=== PATIENT | female | born 1960 | race Caucasian/White ===

== ENCOUNTER 2018-04-23 11:37 | Outpatient (CLI) | payer OTHER ==
[2018-04-23 17:47] LABS: BASOPHILS # (AUTO) 0.1 10^3/uL (0.0-0.1); BASOPHILS % (AUTO) 0.9 %; EOSINOPHILS # (AUTO) 0.1 10^3/uL (0.0-0.7); HGB - HEMOGLOBIN 14.7 g/dL (12.0-16.0); LYMPHOCYTES # (AUTO) 2.1 10^3/uL (1.5-3.5); LYMPHOCYTES % (AUTO) 33.6 %; MEAN CORPUSCULAR HEMOGLOBIN 29.3 pg (27.0-31.0); MEAN CORPUSCULAR HGB CONC 32.6 g/dL (32.0-36.0); MEAN PLATELET VOLUME 8.4 fL (7.9-10.8); MONOCYTES # (AUTO) 0.4 10^3/uL (0.0-1.0); MONOCYTES % (AUTO) 6.3 %; NEUTROPHILS # (AUTO) 3.7 10^3/uL (1.5-6.6); NEUTROPHILS % (AUTO) 57.2 %; PLT - PLATELET COUNT 289 10^3/uL (130-450); RED BLOOD COUNT 5.01 10^6/uL (4.20-5.40); RED CELL DISTRIBUTION WIDTH 13.6 % (12.0-15.0); WHITE BLOOD COUNT 6.4 x10^3/uL (4.8-10.8)
[2018-04-23 18:02] LABS: ALBUMIN 4.1 g/dL (3.2-5.5); ALBUMIN/GLOBULIN RATIO 1.2 (1.0-2.2); ALKALINE PHOSPHATASE 84 IU/L (42-121); ALT ALANINE AMINOTRANSFERASE 31 IU/L (10-60); AST ASPARTATE AMINOTRANSFERASE 25 IU/L (10-42); BILIRUBIN,TOTAL 0.6 mg/dL (0.2-1.0); BUN - BLOOD UREA NITROGEN 17 mg/dL (6-20); CALCIUM 9.4 mg/dL (8.5-10.3); CARBON DIOXIDE - CO2 28 mmol/L (21-32); CHLORIDE 99 mmol/L (101-111); CHOL/HDL RATIO 10.2 (<4.4); CHOLESTEROL 459 mg/dL; CREATININE 0.8 mg/dL (0.4-1.0); GFR - MDRD 74 (>89); GLUCOSE 90 mg/dL (70-100); HDL CHOLESTEROL 45 mg/dL; SODIUM 137 mmol/L (135-145); TOTAL PROTEIN 7.6 g/dL (6.7-8.2)
[2018-04-23 19:43] LABS: LDL CHOLESTEROL,DIRECT 110 mg/dL; LDLD/HDL RATIO 2.4 (<4.4)
[2018-04-23 20:05] LABS: HB2 TOTAL 15.4 g/dL; HEMOGLOBIN A1C 0.55 g/dL; HEMOGLOBIN A1C % 5.4 % (4.6-6.2)
== END 2018-04-23 11:38 | disposition home or self-care (01) ==
LOC: LAB.F 11:37
PROVIDERS: ATTEND Registered Nurse
DX: I10 Essential (primary) hypertension (principal)
CPT/HCPCS: 36415; 80050; 80061; 83036; 83721

== ENCOUNTER 2018-05-01 09:39 | Outpatient (CLI) | payer OTHER ==
--- NOTE | 2018-05-03 10:04 | CT Report ---
Reason: TOBACCO DEPENDENCE,IN REMISSION Procedure Date: 05/01/2018 Accession Number: [id number] / [id number] Procedure: CT - Chest/Lung Screen Low Dose W/O CPT Code: FULL RESULT: EXAM CT LUNG SCREEN EXAM DATE: 05/01/2018 09:55 AM. HISTORY: 57-year-old patient with [id number] smoking history. Currently smoking: No. Years since quitting: Less than 1 year, smoking cessation in May 2017. COMPARISON: None. TECHNIQUE: CT examination of the entire thorax without contrast was performed using low-dose technique. Thin section coronal, axial, sagittal and MIP axial images were obtained. In accordance with CT protocol optimization, one or more of the following dose reduction techniques were utilized for this exam: automated exposure control, adjustment of mA and/or KV based on patient size, or use of iterative reconstructive technique. FINDINGS: Nodules: Right upper lobe: None. Right middle lobe: None. Right lower lobe: Perifissural 0.9 cm right lower lobe nodule image 54 series 6 and image 81 series 4. Left upper lobe: None. Left lower lobe: None. Emphysema: Mild to moderate. Pleura: Unremarkable. Aorta: Unremarkable. Mediastinum: Unremarkable. Coronary calcifications: None. Other pulmonary findings: None. Other extrapulmonary findings: None. IMPRESSION: Lung-RADS ASSESSMENT CATEGORY: 4A - suspicious. Probability of malignancy: 5-15%. RECOMMENDATION: Recommended 3 month low-dose CT followup or characterization by PET CT based on Lung-RADS guidelines. RADIA
== END 2018-05-01 09:40 | disposition home or self-care (01) ==
LOC: DI 09:39
PROVIDERS: ATTEND Registered Nurse
DX: Z12.2 Encounter for screening for malignant neoplasm of respiratory organs (principal); Z87.891 Personal history of nicotine dependence

== ENCOUNTER 2018-07-27 10:12 | Outpatient (CLI) | payer OTHER ==
--- NOTE | 2018-07-27 15:18 | CT Report ---
Reason: SOLITARY NODULE OF LUNG Procedure Date: 07/27/2018 Accession Number: [id number] / [id number] Procedure: CT - CHEST WO CPT Code: FULL RESULT: EXAM: CT CHEST EXAM DATE: 07/27/2018 10:25 AM. CLINICAL HISTORY: Solitary nodule of lung. COMPARISONS: CHEST SCREEN LOW DOSE W/O 05/01/2018 9:45 AM. TECHNIQUE: Routine helical CT imaging was performed through the chest. IV contrast: None. Reconstructions: Coronal and sagittal. In accordance with CT protocol optimization, one or more of the following dose reduction techniques were utilized for this exam: automated exposure control, adjustment of mA and/or KV based on patient size, or use of iterative reconstructive technique. FINDINGS: Lungs/Pleura: There has been no interval change in circumscribed perifissural 9 mm pulmonary nodule, reference 32/4. No bronchial thickening, consolidation, or edema. Pulmonary vasculature is normal. No pericardial or pleural effusion. No pneumothorax. Mediastinum: There is a 16 mm low-density nodule in the right thyroid lobe. No mediastinal adenopathy or masses. The heart and great vessels are normal. Bones: Unremarkable. Visualized Abdomen: 5 mm right lower pole nonobstructive nephrolithiasis. Other: None. IMPRESSION: 1. No interval change in circumscribed solitary 9 mm pulmonary nodule right lower lobe. Recommend three-month low-dose CT follow-up based on Lung-RADS guidelines for category 4A lesion. 2. 16 mm low-density nodule right thyroid lobe. Recommend targeted ultrasound for further characterization. RADIA
== END 2018-07-27 10:13 | disposition home or self-care (01) ==
LOC: DI 10:12
PROVIDERS: ATTEND Registered Nurse
DX: R91.1 Solitary pulmonary nodule (principal); E04.1 Nontoxic single thyroid nodule
CPT/HCPCS: 71250

== ENCOUNTER 2018-08-29 14:02 | Outpatient (CLI) | payer OTHER ==
--- NOTE | 2018-09-02 11:17 | Ultrasound Report ---
Reason: THYROID NODULE,RIGHT Procedure Date: 08/29/2018 Accession Number: [id number] / [id number] Procedure: US - Head or Neck Soft Tissue CPT Code: FULL RESULT: EXAM: THYROID ULTRASOUND EXAM DATE: 08/29/2018 02:30 PM. CLINICAL HISTORY: Thyroid nodule. COMPARISON: None. TECHNIQUE: Real time sonographic imaging of the thyroid was performed by the wood stainer. Multiple malt liquors sales representative static images were saved for review. FINDINGS: THYROID GLAND: Right Lobe: 7.2 x 2.7 x 2.4 cm, volume 24.1 cc. Numerous hypoechoic foci seen throughout the thyroid parenchyma, spongy echotexture which likely consists of innumerable tiny colloid cysts. Right Lobe Nodules: Upper pole 0.9 x 0.5 x 0.6 cm cystic solid nodule as well as a medial midpole 1.0 x 0.7 x 1.0 cm cystic solid nodule and a more lateral cystic solid 0.8 x 0.8 x 0.8 cm nodule. Left Lobe: 5.8 x 1.7 x 2.3 cm, volume 11.4 cc. Numerous hypoechoic foci throughout the thyroid parenchyma, spongy echotexture. Left Lobe Nodules: There are 2 cysts measuring up to 0.5 and 0.7 cm respectively. Isthmus: 0.7 cm AP. Isthmic Nodules: Cystic solid 0.5 x 0.2 x 0.5 cm nodule. LYMPH NODES: No adenopathy demonstrated in the central or lateral compartment. OTHER: None. IMPRESSION: Benign-appearing cystic solid nodules measuring up to 1 cm on a background of numerous tiny cysts throughout the thyroid are a very low suspicion pattern of nodules. Management recommendations are based on 2015 [place] [employer] Management Guidelines for Adult Patients with Thyroid Nodules and Differentiated Thyroid Cancer. RADIA
== END 2018-08-29 14:03 | disposition home or self-care (01) ==
LOC: DI 14:02
PROVIDERS: ATTEND Registered Nurse
DX: E04.2 Nontoxic multinodular goiter (principal)
CPT/HCPCS: 76536

== ENCOUNTER 2019-02-06 09:52 | Outpatient (CLI) | payer OTHER | END 2019-02-06 09:53 | disposition critical access hospital (66) | LOC: EMS 09:52 | PROVIDERS: ATTEND Surgery | DX: R10.11 Right upper quadrant pain (principal); R11.0 Nausea; R61 Generalized hyperhidrosis | CPT/HCPCS: A0425; A0427 ==

== ENCOUNTER 2019-02-06 10:28 | Emergency (ER) | payer OTHER ==
[2019-02-06] MEDS ORDERED: KETOROLAC 30 MG/ML VIAL IVP STA (10:39)
[2019-02-06] MEDS ORDERED: SODIUM CHLORIDE 0.9% 1,000 ML IV ONE (10:40)
[2019-02-06] MEDS ORDERED: ONDANSETRON 4 MG/2 ML VIAL IVP STA (10:48)
[2019-02-06] MEDS ORDERED: HYDROmorphone 1 MG/ML CARPUJECT IVP STA (10:55)
[2019-02-06 11:33] LABS: BASOPHILS # (AUTO) 0.1 10^3/uL (0.0-0.1); BASOPHILS % (AUTO) 0.5 %; EOSINOPHILS # (AUTO) 0.1 10^3/uL (0.0-0.7); EOSINOPHILS % (AUTO) 0.7 %; HGB - HEMOGLOBIN 13.2 g/dL (12.0-16.0); LYMPHOCYTES # (AUTO) 1.4 10^3/uL (1.5-3.5); LYMPHOCYTES % (AUTO) 14.5 %; MEAN CORPUSCULAR HEMOGLOBIN 29.5 pg (27.0-31.0); MEAN CORPUSCULAR HGB CONC 32.2 g/dL (32.0-36.0); MEAN CORPUSCULAR VOLUME 91.7 fL (81.0-99.0); MEAN PLATELET VOLUME 9.3 fL (7.9-10.8); MONOCYTES # (AUTO) 0.4 10^3/uL (0.0-1.0); MONOCYTES % (AUTO) 4.3 %; NEUTROPHILS # (AUTO) 7.7 10^3/uL (1.5-6.6); NEUTROPHILS % (AUTO) 79.4 %; PLT - PLATELET COUNT 249 10^3/uL (130-450); RED BLOOD COUNT 4.47 10^6/uL (4.20-5.40); RED CELL DISTRIBUTION WIDTH 12.7 % (12.0-15.0); WHITE BLOOD COUNT 9.7 x10^3/uL (4.8-10.8)
--- NOTE | 2019-02-06 11:40 | CT Report ---
Reason: R flank, RLQ pain, likely kidney stone Procedure Date: 02/06/2019 Accession Number: [id number] / [id number] Procedure: CT - Abdomen/Pelvis WO CPT Code: FULL RESULT: EXAM: CT ABDOMEN AND PELVIS (CT KUB) EXAM DATE: 02/06/2019 11:17 AM. CLINICAL HISTORY: Right lower quadrant pain. Right flank pain. COMPARISONS: None. TECHNIQUE: Routine axial helical CT imaging was performed through the abdomen and pelvis without IV contrast. Reconstructions: Coronal and sagittal. In accordance with CT protocol optimization, one or more of the following dose reduction techniques were utilized for this exam: automated exposure control, adjustment of mA and/or KV based on patient size, or use of iterative reconstructive technique. FINDINGS: Lung Bases: Minor dependent atelectasis. Right Kidney/Ureter: There is mild right-sided hydronephrosis with 4 mm obstructing stone near the right ureterovesical junction (image 146/30). No additional kidney stones are seen. Left Kidney/Ureter: No stones, hydronephrosis, or hydroureter. No perinephric fat stranding. Other Solid Organs: Noncontrast images of the solid organs are grossly unremarkable. Gallbladder/Bile Ducts: Unremarkable. Peritoneal Cavity: There is mild predominantly left hemicolon diverticulosis without evidence of diverticulitis. There is no obstruction or ileus. No free fluid or free air. The appendix is normal. Pelvic Organs: No bladder stones or wall thickening. Noncontrast images of the visualized pelvic organs are unremarkable. Vasculature: Unremarkable. Other: None. IMPRESSION: 1. Mild right-sided hydronephrosis with 4 mm obstructing stone at the right ureterovesical junction. No additional kidney stones are seen. 2. Mild diverticulosis of the left hemicolon without diverticulitis. 3. Normal appendix. RADIA
[2019-02-06 11:46] LABS: CALCIUM 8.5 mg/dL (8.5-10.3)
--- NOTE | 2019-02-06 12:16 | ED Physician Documentation ---
PD HPI ABD PAIN - Stated complaint Stated Complaint: R FLANK PX - Chief complaint Chief Complaint: Abd Pain - History obtained from History obtained from: Patient, EMS - History of Present Illness Timing - onset: Today (this morning, woke up with pain a few hours ago) Timing - duration: Hours Timing - details: Abrupt onset Severity Comments: severe right flank and lower abdominal pain Quality: Sharp, Stabbing Location: Other (R flank and RLQ) Radiation: Improved by: Other (nothing) Worsened by: Other (nothing) Associated symptoms: Nausea, Vomiting. No: Fever, Hematemesis, Diarrhea, Constipation, Melena, Hematochezia, Dysuria, Hematuria, Near syncope / syncope Similar symptoms before: Has not had sx before Recently seen: Not recently seen - Treatment prior to arrival Treatment prior to arrival: given fentanyl prior to arrival by ems Review of Systems Ten Systems: 10 systems reviewed and negative Constitutional: reports: Chills. denies: Fever Cardiac: denies: Chest pain / pressure, Palpitations, Pedal edema GI: reports: Abdominal Pain, Nausea, Vomiting : denies: Dysuria, Frequency, Hesitancy Skin: denies: Rash Musculoskeletal: denies: Neck pain, Back pain Immunocompromised: reports: Reviewed and negative PD PAST MEDICAL HISTORY - Past Medical History Past Medical History: Yes Cardiovascular: Hypertension, High cholesterol Respiratory: Emphysema - Past Surgical History Past Surgical History: Yes - Present Medications Home Medications: Ambulatory Orders Medication Instructions Recorded Confirmed Hydrocodone/Acetaminophen 1 - 2 each PO Q6H PRN #6 tablet 02/06/19 [Hydrocodon-Acetaminophen 5-325] Ondansetron Odt [Zofran] 4 mg TL Q6H PRN #10 tablet 02/06/19 - Allergies Allergies/Adverse Reactions: Allergies Allergy/AdvReac Type Severity Reaction Status Date / Time Penicillins Allergy Hives Verified 02/06/19 10:49 - Social History Does the pt smoke?: No Smoking Status: Former smoker Does the pt drink ETOH?: Yes Does the pt have substance abuse?: No PD ED PE NORMAL - Vitals Vital signs reviewed: Yes - General General: Alert and oriented X 3, No acute distress, Well developed/nourished - HEENT HEENT: Atraumatic, Moist mucous membranes, Pharynx benign - Neck Neck: No JVD - Cardiac Cardiac: RRR - Respiratory Respiratory: No respiratory distress - Abdomen Abdomen: Soft, Non tender, Non distended - Female Female : Deferred - Rectal Rectal: Deferred - Derm Derm: Normal color, Warm and dry, No rash - Extremities Extremities: No edema - Neuro Neuro: Alert and oriented X 3 Eye Opening: Spontaneous Motor: Obeys Commands Verbal: Oriented GCS Score: 15 - Psych Psych: Normal mood, Normal affect Results - Vitals Vitals: Vital Signs - 24 hr 02/06/19 02/06/19 10:31 13:33 Temperature 36.6 C 36.5 C Heart Rate 70 70 Respiratory 22 20 Rate Blood Pressure 156/83 H 148/80 H O2 Saturation 96 95 Oxygen O2 Source Room air - Labs Labs: Laboratory Tests 02/06/19 02/06/19 02/06/19 11:25 11:25 13:25 WBC 9.7 RBC 4.47 Hgb 13.2 Hct 41.0 MCV 91.7 MCH 29.5 MCHC 32.2 RDW 12.7 Plt Count 249 MPV 9.3 Neut # (Auto) 7.7 H Lymph # (Auto) 1.4 L [place] # (Auto) 0.4 Eos # (Auto) 0.1 Baso # (Auto) 0.1 Absolute Nucleated RBC 0.00 Nucleated RBC % 0.0 Sodium 141 Potassium 3.8 Chloride 106 Carbon Dioxide 25 Anion Gap 10.0 BUN 21 H Creatinine 1.0 Estimated GFR (MDRD) 57 L Glucose 123 H Calcium 8.5 Urine Color YELLOW Urine Clarity SL. CLOUDY Urine pH 6.0 Ur Specific [place] 1.015 Urine Protein NEGATIVE Urine Glucose (UA) NEGATIVE Urine Ketones NEGATIVE Urine Occult Blood MODERATE H Urine Nitrite NEGATIVE Urine Bilirubin NEGATIVE Urine Urobilinogen 0.2 (NORMAL) Ur Leukocyte Esterase NEGATIVE Urine RBC 6-10 H Urine WBC 0-3 Ur Squamous Epith Cells MOD Squamous H Urine Bacteria Few Ur Microscopic Review INDICATED Urine Culture Comments NOT INDICATED - Rads (name of study) CT abd/pelvis Radiology: Final report received, See rad report (R sided kidney stone) PD MEDICAL DECISION MAKING - ED course Complexity details: reviewed results, re-evaluated patient, considered differential, d/w patient ED course: ddx- UTI, kidney stone, AAA, appendicitis, cholelithiasis, cholecystitis 58 y/o F with R flank pain radiating to her groin, no abdominal tenderness but pt very uncomfortable, no prior hx of kidney stone but I suspect this is a stone. Given her age and no prior hx will obtain CT to eval for AAA vs stone vs appendicitis or other pathology. CT confirmed stone. Pt is feeling markedly improved after zofran and analgesics. UA negative for infection. Pt tolerating PO and is stable for discharge with outpt analgesics. Return precautions discussed in case of worsening pain, fever or new concerning symptoms. Departure - Departure Disposition: 01 Home, Self Care Clinical Impression: Kidney stone on right side Condition: Stable Record reviewed to determine appropriate education?: Yes Instructions: Kidney Stones Follow-Up: Rosalia Barcenas ARNP [Primary Care Provider] - Within 1 week (recheck your symptoms) Prescriptions: Hydrocodone/Acetaminophen [Hydrocodon-Acetaminophen 5-325] 1 - 2 each PO Q6H PRN #6 tablet PRN Reason: pain Ondansetron Odt [Zofran] 4 mg TL Q6H PRN #10 tablet PRN Reason: Nausea / Vomiting Comments: You have a kidney stone on the Right side. It is 4mm in size and at the junction of your bladder and ureter. It is likely to pass on its own. You do not hava a urinary tract infection and your labs today were normal. You can take ibuprofen as needed for pain and vicodin if pain is severe. You can also take zofran as needed for nausea or vomiting. If pain is severe and not improving with ibuprofen or the vicodin or you develop a fever return to the ED. Otherwise follow up with your regular doctor to recheck your symptoms.
[2019-02-06 13:34] VITALS: BP 148/80
[2019-02-06 13:38] LABS: BILIRUBIN,URINE NEGATIVE (NEGATIVE); GLUCOSE, URINE (UA) NEGATIVE (NEGATIVE); KETONES,URINE (UA) NEGATIVE (NEGATIVE); LEUKOCYTE ESTERASE, URINE NEGATIVE (NEGATIVE); NITRITE,URINE NEGATIVE (NEGATIVE); OCCULT BLOOD,URINE MODERATE (NEGATIVE); PROTEIN,URINE NEGATIVE (NEGATIVE); UROBILINOGEN,URINE 0.2 (NORMAL) E.U./dL (NORMAL)
[2019-02-06 13:40] LABS: CLARITY,URINE SL. CLOUDY (CLEAR)
[2019-02-06 13:49] LABS: BACTERIA,URINE Few /HPF (None Seen); SQUAMOUS EPITHELIAL CELL,UR MOD Squamous (<= Few)
[2019-02-06] MEDS ORDERED: HYDROcod/ACETAM 5/325 MG TABLET PO STA (14:07)
== END 2019-02-06 14:41 | disposition home or self-care (01) ==
LOC: EDUNIT# → ED 10:28
DX: N20.0 Calculus of kidney (principal); I10 Essential (primary) hypertension; E78.00 Pure hypercholesterolemia, unspecified; J43.9 Emphysema, unspecified; Z87.891 Personal history of nicotine dependence
CPT/HCPCS: 36415; 74176; 80048; 81001; 85025; 96361; 96374; 96375; 99284; A9270; J1170; 81003; 87086

== ENCOUNTER 2019-03-03 12:37 | Outpatient (CLI) | payer OTHER ==
[~2019-03-03 12:37] MED LIST: ALBUTEROL NEB 2.5 MG/3 ML INH SCH
== END 2019-03-03 12:38 | disposition home or self-care (01) ==
LOC: RT 12:37
PROVIDERS: ATTEND Registered Nurse
DX: J43.9 Emphysema, unspecified (principal); Z87.891 Personal history of nicotine dependence
CPT/HCPCS: 94010

== ENCOUNTER 2019-04-19 12:52 | Outpatient (CLI) | payer OTHER ==
--- NOTE | 2019-04-29 10:35 | Mammography Report ---
Reason: ROUTINE MAMMO Procedure Date: 04/19/2019 Accession Number: [id number] / [id number] Procedure: NATALIO - Screening Mammo w/Daniel CPT Code: Final Report FULL RESULT: EXAM: Screening Mammo w/Daniel DATE: 04/19/2019 1:26 PM CLINICAL HISTORY: Screening encounter. Family history of breast cancer in a paternal grandmother at the age of 30. TECHNIQUE: (B) - Bilateral CC and MLO views were obtained. COMPARISON: None PARENCHYMAL PATTERN: (A) - The breast(s) demonstrate(s) scattered fibroglandular densities. FINDINGS: In the left lateral breast at the 9:00 position 11 to 12 cm from the nipple is a isodense lobulated cluster of nodules which measures up to 5 mm and requires additional characterization by spot imaging and ultrasound unless prior comparisons can demonstrate greater than two-year stability. There are coarse typically benign calcifications. There are no suspicious masses, calcifications, or areas of distortion. IMPRESSION: Incomplete examination. BI-RADS category 0. RECOMMENDATION: ([facility]) - Additional views using both Mammography and Ultrasound recommended. Left lateral breast. Please note that additional imaging is potentially obviated if prior comparison studies are made available for review. BI-RADS CATEGORY: (0) - Incomplete Examination - need additional evaluation. STANDARD QUALIFYING STATEMENTS: 1. This examination was not reviewed with the aid of Computer-Aided Detection (CAD). 2. A negative or benign imaging report should not preclude biopsy if clinically suspicious findings are present. 3. Dense breasts may obscure an underlying neoplasm. 4. This examination was reviewed with the aid of 3D breast imaging (tomosynthesis).
== END 2019-04-19 12:53 | disposition home or self-care (01) ==
LOC: DI 12:52
PROVIDERS: ATTEND Registered Nurse
DX: Z12.31 Encounter for screening mammogram for malignant neoplasm of breast (principal); R92.8 Other abnormal and inconclusive findings on diagnostic imaging of breast; Z80.3 Family history of malignant neoplasm of breast
CPT/HCPCS: 77063; 77067

== ENCOUNTER 2019-04-19 12:53 | Outpatient (CLI) | payer OTHER ==
--- NOTE | 2019-04-21 08:48 | DEXA Report ---
Reason: POSTMENOPAUSAL Procedure Date: 04/19/2019 Accession Number: [id number] / [id number] Procedure: DEX - Dexa Spine and/or Hip CPT Code: Final Report FULL RESULT: EXAM: Dexa Spine and/or Hip DATE: 04/19/2019 1:35 PM CLINICAL HISTORY: POSTMENOPAUSAL TECHNIQUE: Dual energy x-ray absorptiometry (DXA) was performed on a [employer] System. Regions measured are the AP Spine, femoral neck, and if needed forearm. COMPARISON: None. In accordance with the International Society for Clinical Densitometry (ISCD) guidelines, data from previous exams may be reanalyzed using current recommendations and techniques. This is done to allow a more accurate basis for comparison with the current study. FINDINGS: The data for the lumbar spine is as follows: BMD (g/cm/cm) T-SCORE Z-SCORE REGION L1 1.134 0.0 0.1 L2 1.326 1.0 1.1 L3 1.290 0.8 0.8 L4 1.268 0.6 0.6 TOTAL 1.257 0.6 0.7 NOTE: All evaluable vertebrae are used for classification The data for the hip is as follows: BMD (g/cm/cm) T-SCORE Z-SCORE REGION Neck 0.899 -1.0 -0.5 TOTAL 0.993 -0.1 0.0 NOTE: The femoral neck or total proximal femur, whichever is lowest, is used for classification. IMPRESSION: THE WHO CLASSIFICATION BASED ON THE INTERNATIONAL REFERENCE STANDARD IS NORMAL. THE FRACTURE RISK IS NOT INCREASED. RECOMMENDATION: Patients with diagnosis of osteoporosis or osteopenia should have regular bone mineral density assessment. For those eligible for Medicare, routine testing is allowed once every 2 years. Testing frequency can be increased for patients who have rapidly progressing disease or for those who are receiving medical therapy to restore bone mass. COMMENT: World Health Organization (WHO) definitions for osteoporosis and osteopenia: NORMAL BMD: T-score at -1.0 or higher, fracture risk is low OSTEOPENIA BMD: T-score between -1.0 and -2.5, fracture risk is increased. OSTEOPOROSIS BMD: T-score at -2.5 or lower, fracture risk is high. National Osteoporosis Foundation recommends: 1. Obtain adequate dietary calcium (at least 1200 mg per day) and vitamin D (400-800 international units per day). 2. Participate, as appropriate, in regular weightbearing and muscle-strengthening exercise. 3. Avoid tobacco use and reduce alcohol and caffeine intake. 4. For more detailed information see the website at www.NOF.org.
== END 2019-04-19 12:54 | disposition home or self-care (01) ==
LOC: DI 12:53
PROVIDERS: ATTEND Registered Nurse
DX: Z78.0 Asymptomatic menopausal state (principal)
CPT/HCPCS: 77080

== ENCOUNTER 2019-05-26 12:58 | Outpatient (CLI) | payer OTHER ==
[~2019-05-26 12:58] MED LIST changes: -ALBUTEROL NEB 2.5 MG/3 ML INH SCH; +IOVERSOL 320 100 ML VIAL IVP ONE
--- NOTE | 2019-05-26 15:32 | Mammography Report ---
Reason: ABN MAMMO - SPEC VIEWS LT Procedure Date: 05/26/2019 Accession Number: [id number] / [id number] Procedure: NATALIO - Diag Special Views Dig LT CPT Code: Final Report FULL RESULT: EXAM: Diag Special Views Dig LT DATE: 05/26/2019 2:04 PM CLINICAL HISTORY: Diagnostic examination. Patient is recalled from screening, effectively new baseline examination, for left breast nodule. TECHNIQUE: (L) - Left spot CC, spot MLO and ML images of the left breast are obtained. Focused left breast ultrasound is performed. COMPARISON: 04/19/2019. PARENCHYMAL PATTERN: (A) - The breast(s) demonstrate(s) scattered fibroglandular densities. FINDINGS: A gently lobulated 5 mm nodule in the lateral left breast 11 cm from the nipple is redemonstrated, ML 3-D image 23. Focused left breast ultrasound is performed which demonstrates a cluster of microcysts at the 3:00 position 10 cm from the nipple which corresponds in size shape and location to the mammographic finding, typically benign. There are no suspicious masses, calcifications, or areas of distortion. IMPRESSION: Benign findings. BI-RADS category 2. RECOMMENDATION: (ANNUAL) - Recommend routine annual screening mammography. BI-RADS CATEGORY: (2) - Benign Findings. STANDARD QUALIFYING STATEMENTS: 1. This examination was not reviewed with the aid of Computer-Aided Detection (CAD). 2. A negative or benign imaging report should not preclude biopsy if clinically suspicious findings are present. 3. Dense breasts may obscure an underlying neoplasm. 4. This examination was reviewed with the aid of 3D breast imaging (tomosynthesis).
== END 2019-05-26 12:59 | disposition home or self-care (01) ==
LOC: DI 12:58
PROVIDERS: ATTEND Registered Nurse
DX: N60.12 Diffuse cystic mastopathy of left breast (principal)
CPT/HCPCS: 76642

== ENCOUNTER 2020-03-20 17:39 | Outpatient (CLI) | payer OTHER ==
[2020-03-20 20:26] LABS: BASOPHILS # (AUTO) 0.1 10^3/uL (0.0-0.1); BASOPHILS % (AUTO) 0.7 %; EOSINOPHILS # (AUTO) 0.1 10^3/uL (0.0-0.7); EOSINOPHILS % (AUTO) 1.9 %; HGB - HEMOGLOBIN 14.2 g/dL (12.0-16.0); LYMPHOCYTES # (AUTO) 2.4 10^3/uL (1.5-3.5); LYMPHOCYTES % (AUTO) 32.7 %; MEAN CORPUSCULAR HEMOGLOBIN 30.4 pg (27.0-31.0); MEAN CORPUSCULAR HGB CONC 32.3 g/dL (32.0-36.0); MEAN CORPUSCULAR VOLUME 94.2 fL (81.0-99.0); MEAN PLATELET VOLUME 10.1 fL (7.9-10.8); MONOCYTES # (AUTO) 0.6 10^3/uL (0.0-1.0); MONOCYTES % (AUTO) 8.8 %; NEUTROPHILS % (AUTO) 55.6 %; PLT - PLATELET COUNT 302 10^3/uL (130-450); RED BLOOD COUNT 4.67 10^6/uL (4.20-5.40); RED CELL DISTRIBUTION WIDTH 12.6 % (12.0-15.0); WHITE BLOOD COUNT 7.2 x10^3/uL (4.8-10.8)
[2020-03-20 20:47] LABS: ALBUMIN 4.4 g/dL (3.2-5.5); ALBUMIN/GLOBULIN RATIO 1.3 (1.0-2.2); ALKALINE PHOSPHATASE 81 IU/L (42-121); ALT ALANINE AMINOTRANSFERASE 32 IU/L (10-60); AST ASPARTATE AMINOTRANSFERASE 25 IU/L (10-42); BILIRUBIN,TOTAL 0.9 mg/dL (0.2-1.0); BUN - BLOOD UREA NITROGEN 17 mg/dL (6-20); CALCIUM 9.2 mg/dL (8.5-10.3); CARBON DIOXIDE - CO2 27 mmol/L (21-32); CHLORIDE 103 mmol/L (101-111); CHOLESTEROL 248 mg/dL; CREATININE 0.8 mg/dL (0.4-1.0); GLUCOSE 90 mg/dL (70-100); HDL CHOLESTEROL 50 mg/dL; LDL CHOLESTEROL,CALCULATED 138 mg/dL; LDL/HDL RATIO 2.8 (<4.4); SODIUM 140 mmol/L (135-145); TOTAL PROTEIN 7.8 g/dL (6.7-8.2); VLDL CHOLESTEROL 60 mg/dL
== END 2020-03-20 17:40 | disposition home or self-care (01) ==
LOC: LAB.S 17:39
PROVIDERS: ATTEND Registered Nurse
DX: Z87.19 Personal history of other diseases of the digestive system (principal); K21.9 Gastro-esophageal reflux disease without esophagitis; R14.0 Abdominal distension (gaseous); F41.8 Other specified anxiety disorders; I10 Essential (primary) hypertension
CPT/HCPCS: 36415; 80050; 80061; 83721

== ENCOUNTER 2020-04-05 10:27 | Outpatient (CLI) | payer OTHER ==
--- NOTE | 2020-04-05 11:17 | CT Report ---
PROCEDURE: CHEST WO INDICATIONS: SOLITARY NODULE OF LUNG TECHNIQUE: Noncontrast 5 mm thick sections acquired from the pulmonary apices to the posterior costophrenic angl es. 7 mm thick coronal and sagittal MIP reformats were then acquired. For radiation dose reduction, the following was used: automated exposure control, adjustment of mA and/or kV according to patient size. COMPARISON: Dictation from CT dated 07/27/2018. Prior images are not available. FINDINGS: Image quality: Excellent. Lungs and pleura: No acute air space opacities. No pleural effusions or pneumothorax. Central and peripheral airways are patent and normal in caliber. 9mm solid nodule in the right lower lobe series 6 image 26 Mediastinum: Heart size is normal. No pericardial effusion. No mediastinal adenopathy by size crit eria. Thoracic aorta and central pulmonary arteries are normal in size. Esophagus is normal in karol bhargav. No hiatal hernia. Bones and chest wall: No suspicious bony lesions. No vertebral body compression fractures. No axil ko or supraclavicular adenopathy by size criteria. The thyroid is normal in size. Abdomen: Visualized upper abdominal solid organs and bowel loops appear normal in the absence of con trast. IMPRESSION: 1. 9 mm nodule in the right lower lobe is unchanged in size compared to prior CT on 07/27/2018. 2. Previously described 16 mm low-density nodule in the right thyroid lobe is not identified on the c urrent CT. Reviewed by: Go Murillo on 04/05/2020 11:16 AM [facility] Approved by: Go Murillo on 04/05/2020 11:16 AM PST Station ID: [id number]
== END 2020-04-05 10:28 | disposition home or self-care (01) ==
LOC: DI 10:27
PROVIDERS: ATTEND Registered Nurse
DX: R91.1 Solitary pulmonary nodule (principal)
CPT/HCPCS: 71250

== ENCOUNTER 2020-11-09 10:31 | Outpatient (CLI) | payer MEDICARE, OTHER ==
[2020-11-10 13:07] LABS: HEPATITIS C ANTIBODY NON-REACTIVE (NON-REACTIVE)
== END 2020-11-09 10:32 | disposition home or self-care (01) ==
LOC: LAB.S 10:31
PROVIDERS: ATTEND Surgery
DX: Z00.00 Encounter for general adult medical examination without abnormal findings (principal)
CPT/HCPCS: 36415; 86803

== ENCOUNTER 2020-12-04 10:28 | Outpatient (CLI) | payer MEDICARE, OTHER ==
--- NOTE | 2020-12-04 16:13 | Ultrasound Report ---
PROCEDURE: Abdomen Complete INDICATIONS: ABDOMINAL BLOATING TECHNIQUE: Real-time scanning was performed of the abdominal and retroperitoneal organs, with image documentatio n. COMPARISON: Correlation is made with abdomen pelvis CT, 02/06/2019 FINDINGS: Liver: The liver demonstrates mildly prominent size. The liver demonstrates moderately increased ec hogenicity with a coarse liver echotexture, which limits ultrasound sensitivity for detection of mass es. Gallbladder: No gallstones or significant sludge can be seen. The gallbladder wall does not appear th ickened. There is no specific pericholecystic fluid. The sonographic Lomas's sign is negative. Biliary ducts: Intrahepatic bile ducts are non-dilated. Extrahepatic bile duct caliber measures 5 m m. Normal is 6-7 mm or less in diameter, or 10 mm or less post-cholecystectomy. Pancreas: Visualized portions of the pancreas are sonographically normal. Spleen: Spleen is normal in size and homogeneous in echotexture. Kidneys: Kidneys are normal in size and echotexture. Right kidney measures 13.2 cm long; left kidne y measures 12 cm long. No hydronephrosis or nephrolithiasis. No solid masses. The left renal conto ur is abnormal, it without a focal mass identified. Aorta: Visualized aorta is normal in caliber at less than 3 cm. Iliacs: Proximal common iliac arteries are normal in caliber at less than 2.5 cm. IVC: Intrahepatic inferior vena cava is patent. Miscellaneous: No free abdominal fluid. Overall scan quality is limited by bowel gas and body habitus. IMPRESSION: Increased liver echogenicity is seen. This is nonspecific, yet it is most commonly attributed to fatt y infiltration. The gallbladder demonstrates a normal sonographic appearance. No biliary dilatation is seen. Reviewed by: Rudy Hernández MD on 12/04/2020 3:11 PM [facility] Approved by: Rudy Hernández MD on 12/04/2020 3:11 PM [facility] Station ID: [id number]
== END 2020-12-04 10:29 | disposition home or self-care (01) ==
LOC: DI 10:28
PROVIDERS: ATTEND Surgery
DX: R14.0 Abdominal distension (gaseous) (principal)

== ENCOUNTER 2021-02-28 09:39 | Outpatient (CLI) | payer MEDICARE, OTHER ==
[2021-02-28 14:29] LABS: BASOPHILS # (AUTO) 0.1 10^3/uL (0.0-0.1); BASOPHILS % (AUTO) 0.9 %; EOSINOPHILS # (AUTO) 0.2 10^3/uL (0.0-0.7); EOSINOPHILS % (AUTO) 2.4 %; LYMPHOCYTES # (AUTO) 1.9 10^3/uL (1.5-3.5); LYMPHOCYTES % (AUTO) 29.5 %; MEAN CORPUSCULAR HEMOGLOBIN 31.3 pg (27.0-31.0); MEAN CORPUSCULAR HGB CONC 32.6 g/dL (32.0-36.0); MEAN CORPUSCULAR VOLUME 95.8 fL (81.0-99.0); MEAN PLATELET VOLUME 10.4 fL (7.9-10.8); MONOCYTES # (AUTO) 0.5 10^3/uL (0.0-1.0); MONOCYTES % (AUTO) 7.8 %; NEUTROPHILS # (AUTO) 3.9 10^3/uL (1.5-6.6); NEUTROPHILS % (AUTO) 59.1 %; PLT - PLATELET COUNT 272 10^3/uL (130-450); RED CELL DISTRIBUTION WIDTH 12.4 % (12.0-15.0); WHITE BLOOD COUNT 6.5 x10^3/uL (4.8-10.8)
[2021-02-28 14:49] LABS: BILIRUBIN,URINE NEGATIVE (NEGATIVE); GLUCOSE, URINE (UA) NEGATIVE (NEGATIVE); KETONES,URINE (UA) NEGATIVE (NEGATIVE); LEUKOCYTE ESTERASE, URINE NEGATIVE (NEGATIVE); NITRITE,URINE NEGATIVE (NEGATIVE); OCCULT BLOOD,URINE SMALL (NEGATIVE); PROTEIN,URINE NEGATIVE (NEGATIVE); UROBILINOGEN,URINE 0.2 (NORMAL) E.U./dL (NORMAL)
[2021-02-28 14:51] LABS: CLARITY,URINE CLEAR (CLEAR)
[2021-02-28 14:56] LABS: BACTERIA,URINE Few /HPF (None Seen); RBC,URINE 0-5 /HPF (0-5); SQUAMOUS EPITHELIAL CELL,UR FEW Squamous (<= Few); WBC,URINE 0-3 /HPF (0-5)
[2021-02-28 15:26] LABS: THYROID STIMULATING HORMONE 1.5 uIU/mL (0.34-5.60)
[2021-02-28 15:38] LABS: ALBUMIN 4.3 g/dL (3.2-5.5); ALBUMIN/GLOBULIN RATIO 1.3 (1.0-2.2); ALKALINE PHOSPHATASE 96 IU/L (42-121); ALT ALANINE AMINOTRANSFERASE 34 IU/L (10-60); AST ASPARTATE AMINOTRANSFERASE 28 IU/L (10-42); BILIRUBIN,TOTAL 1.2 mg/dL (0.2-1.0); BUN - BLOOD UREA NITROGEN 14 mg/dL (6-20); CALCIUM 9.4 mg/dL (8.5-10.3); CARBON DIOXIDE - CO2 27 mmol/L (21-32); CHLORIDE 101 mmol/L (101-111); CHOL/HDL RATIO 6.4 (<4.4); CHOLESTEROL 312 mg/dL; CREATININE 0.7 mg/dL (0.4-1.0); GFR - MDRD 85 (>89); GLUCOSE 98 mg/dL (70-100); HDL CHOLESTEROL 49 mg/dL; POTASSIUM 3.8 mmol/L (3.5-5.0); SODIUM 140 mmol/L (135-145); TOTAL PROTEIN 7.5 g/dL (6.7-8.2); TRIGLYCERIDES 545 mg/dL
[2021-02-28 16:16] LABS: LDL CHOLESTEROL,DIRECT 76 mg/dL; LDLD/HDL RATIO 1.6 (<4.4)
[2021-03-01 10:06] LABS: HEPATITIS C ANTIBODY NON-REACTIVE (NON-REACTIVE)
== END 2021-02-28 09:40 | disposition home or self-care (01) ==
LOC: LAB.S 09:39
PROVIDERS: ATTEND Registered Nurse
DX: Z00.00 Encounter for general adult medical examination without abnormal findings (principal); E04.1 Nontoxic single thyroid nodule; J43.8 Other emphysema; I10 Essential (primary) hypertension; R32 Unspecified urinary incontinence; R10.13 Epigastric pain
CPT/HCPCS: 36415; 80053; 80061; 81001; 83721; 84443; 85025; 86803

== ENCOUNTER 2021-04-10 09:53 | Outpatient (CLI) | payer MEDICARE, OTHER ==
--- NOTE | 2021-04-10 16:17 | Nuclear Medicine Report ---
PROCEDURE: Hepatobiliary HIDA w/ Rx INDICATIONS: EPIGASTRIC PAIN RADIOPHARMACEUTICAL: 4.7 mCi Tc-99m meprofenin i.v. and 2.1 g sincalide i.v. TECHNIQUE: Following intravenous administration of Tc-99m meprofenin, sequential anterior abdominal images were obtained through 55 minutes. To evaluate the contractile response of the gallbladder in response to Cholecystokinin (CCK), 2.1 microgram sincalide (0.02 g/kg) was administered by slow intr avenous infusion approximately 55 minutes after the administration of the radiopharmaceutical. Seque ntial imaging was continued for 30 minutes after the start of CCK infusion. Gallbladder ejection fra ction was calculated. COMPARISON: Ultrasound abdomen 12/04/2020 FINDINGS: Biliary scan: There is normal tracer uptake and excretion by the liver. There is normal visualizati on of the intrahepatic ducts, common bile duct, and gallbladder. There is normal tracer transit into the duodenum. CCK stimulation: There is prominent contractile response of the gallbladder to CCK infusion. The ca lculated gallbladder ejection fraction is 97%; normal values are above 35%. IMPRESSION: 1. Normal biliary imaging study. 2. Normal contractile response of gallbladder to CCK infusion. Reviewed by: Minesh Torre MD on 04/10/2021 4:16 PM PST Approved by: Minesh Torre MD on 04/10/2021 4:16 PM PST Station ID: [id number]
[2021-04-10] MEDS ORDERED: SINCALIDE 2.09 MCG in SODIUM CHLORIDE 0.9% 50 ML IV ONE (16:51)
== END 2021-04-10 09:54 | disposition home or self-care (01) ==
LOC: DI 09:53
PROVIDERS: ATTEND Surgery
DX: R10.13 Epigastric pain (principal)
CPT/HCPCS: 78227; J7040

== ENCOUNTER 2021-05-04 08:00 | Outpatient (CLI) | payer MEDICARE, OTHER | END 2021-05-04 23:59 | LOC: LAB 08:00 | PROVIDERS: ATTEND Emergency Medicine | DX: L72.3 Sebaceous cyst (principal) | CPT/HCPCS: 87070; 87205 ==

== ENCOUNTER 2021-12-09 14:37 | Emergency (ER) | payer MEDICARE, OTHER ==
[2021-12-09 14:53] LABS: BASOPHILS # (AUTO) 0.1 10^3/uL (0.0-0.1); BASOPHILS % (AUTO) 0.6 %; EOSINOPHILS # (AUTO) 0.1 10^3/uL (0.0-0.7); EOSINOPHILS % (AUTO) 1.5 %; HCT - HEMATOCRIT 46.4 % (37.0-47.0); LYMPHOCYTES # (AUTO) 1.4 10^3/uL (1.5-3.5); LYMPHOCYTES % (AUTO) 17.6 %; MEAN CORPUSCULAR HEMOGLOBIN 30.1 pg (27.0-31.0); MEAN CORPUSCULAR HGB CONC 32.3 g/dL (32.0-36.0); MEAN CORPUSCULAR VOLUME 93.2 fL (81.0-99.0); MEAN PLATELET VOLUME 9.1 fL (7.9-10.8); MONOCYTES # (AUTO) 0.7 10^3/uL (0.0-1.0); MONOCYTES % (AUTO) 8.5 %; NEUTROPHILS # (AUTO) 5.7 10^3/uL (1.5-6.6); NEUTROPHILS % (AUTO) 71.5 %; PLT - PLATELET COUNT 384 10^3/uL (130-450); RED BLOOD COUNT 4.98 10^6/uL (4.20-5.40); RED CELL DISTRIBUTION WIDTH 13.2 % (12.0-15.0); WHITE BLOOD COUNT 7.9 x10^3/uL (4.8-10.8)
[2021-12-09 15:09] LABS: ALBUMIN 3.6 g/dL (3.2-5.5); ALBUMIN/GLOBULIN RATIO 0.9 (1.0-2.2); BILIRUBIN,TOTAL 0.8 mg/dL (0.2-1.0); CALCIUM 9.7 mg/dL (8.5-10.3); CREATININE 0.8 mg/dL (0.4-1.0); POTASSIUM 4.2 mmol/L (3.5-5.0); TOTAL PROTEIN 7.6 g/dL (6.7-8.2)
--- NOTE | 2021-12-09 17:02 | ED Physician Documentation ---
PD HPI ABD PAIN - Stated complaint Stated Complaint: BLOATED/ABD PX - Chief complaint Chief Complaint: Abd Pain - History obtained from History obtained from: Patient - Additional information Additional information: 61-year-old woman with history of emphysema and GI issues including a hiatal hernia presents with abdominal pain this been going on for couple of months but she noticed bloating for the last 2 weeks which is uncomfortable. Went to the walk-in clinic and was referred here for further evaluation and treatment. She has no history of abdominal surgery. She only drinks a couple of drinks a night and has no history of liver problems. She had a colonoscopy 5 years ago without pertinent positive findings per her. No history of cancers. Review of Systems Ten Systems: 10 systems reviewed and negative Constitutional: denies: Fever, Chills Ears: reports: Reviewed and negative Cardiac: reports: Reviewed and negative Respiratory: reports: Reviewed and negative PD PAST MEDICAL HISTORY - Past Medical History Cardiovascular: High cholesterol, Hypertension Respiratory: Emphysema - Past Surgical History Past Surgical History: Yes - Present Medications Home Medications: Ambulatory Orders Medication Instructions Recorded Confirmed Hydrocodone/Acetaminophen 1 - 2 each PO Q6H PRN #6 tablet 02/06/19 [Hydrocodon-Acetaminophen 5-325] Ondansetron Odt [Zofran] 4 mg TL Q6H PRN #10 tablet 02/06/19 LORazepam [Ativan] 1 mg PO TID PRN #12 tablet 12/09/21 - Allergies Allergies/Adverse Reactions: Allergies Allergy/AdvReac Type Severity Reaction Status Date / Time Penicillins Allergy Hives Verified 12/09/21 14:41 - Social History Does the pt smoke?: No Smoking Status: Former smoker Does the pt drink ETOH?: Yes Does the pt have substance abuse?: No PD ED PE NORMAL - Vitals Vital signs reviewed: Yes - General General: Alert and oriented X 3, No acute distress - HEENT HEENT: PERRL, EOMI - Neck Neck: Supple, no meningeal sign, No bony TTP - Cardiac Cardiac: RRR, No murmur - Respiratory Respiratory: No respiratory distress, Clear bilaterally - Abdomen Abdomen: Normal bowel sounds, Soft, Other (She has tense ascites without tenderness. Bedside ultrasound demonstrates ascites. Also a concern for pelvic cystic masses.) - Back Back: No CVA TTP, No spinal TTP - Derm Derm: Normal color, Warm and dry - Extremities Extremities: No edema, No calf tenderness / cord - Neuro Neuro: Alert and oriented X 3, Normal speech - Psych Psych: Normal mood, Normal affect Results - Vitals Vitals: Vital Signs - 24 hr 12/09/21 12/09/21 14:41 17:44 Temperature 36.5 C Heart Rate 95 91 Respiratory 16 18 Rate Blood Pressure 158/86 H 144/83 H O2 Saturation 97 98 Oxygen O2 Source Room air - Labs Labs: Laboratory Tests 12/09/21 12/09/21 12/09/21 14:41 14:41 14:50 WBC 7.9 RBC 4.98 Hgb 15.0 Hct 46.4 MCV 93.2 MCH 30.1 MCHC 32.3 RDW 13.2 Plt Count 384 MPV 9.1 Neut # (Auto) 5.7 Lymph # (Auto) 1.4 L Mower # (Auto) 0.7 Eos # (Auto) 0.1 Baso # (Auto) 0.1 Absolute Nucleated RBC 0.00 Nucleated RBC % 0.0 Sodium 138 Potassium 4.2 Chloride 100 L Carbon Dioxide 29 Anion Gap 9.0 BUN 16 Creatinine 0.8 Estimated GFR (MDRD) 73 L Glucose 109 H Calcium 9.7 Total Bilirubin 0.8 AST 25 ALT 18 Alkaline Phosphatase 96 Total Protein 7.6 Albumin 3.6 Globulin 4.0 Albumin/Globulin Ratio 0.9 L Lipase 29 CA 125 Antigen 28834.0 H Urine Color Urine Clarity Urine pH Ur Specific [place] Urine Protein Urine Glucose (UA) Urine Ketones Urine Occult Blood Urine Nitrite Urine Bilirubin Urine Urobilinogen Ur Leukocyte Esterase Urine RBC Urine WBC Ur Squamous Epith Cells Urine Bacteria Ur Microscopic Review Urine Culture Comments 12/09/21 17:20 WBC RBC Hgb Hct MCV MCH MCHC RDW Plt Count MPV Neut # (Auto) Lymph # (Auto) Mower # (Auto) Eos # (Auto) Baso # (Auto) Absolute Nucleated RBC Nucleated RBC % Sodium Potassium Chloride Carbon Dioxide Anion Gap BUN Creatinine Estimated GFR (MDRD) Glucose Calcium Total Bilirubin AST ALT Alkaline Phosphatase Total Protein Albumin Globulin Albumin/Globulin Ratio Lipase CA 125 Antigen Urine Color YELLOW Urine Clarity HAZY Urine pH 5.5 Ur Specific [place] >=1.030 H Urine Protein NEGATIVE Urine Glucose (UA) NEGATIVE Urine Ketones NEGATIVE Urine Occult Blood NEGATIVE Urine Nitrite POSITIVE H Urine Bilirubin NEGATIVE Urine Urobilinogen 0.2 (NORMAL) Ur Leukocyte Esterase NEGATIVE Urine RBC 0-5 Urine WBC 4-5 Ur Squamous Epith Cells MANY Squamous H Urine Bacteria Many H Ur Microscopic Review INDICATED Urine Culture Comments NOT INDICATED PD MEDICAL DECISION MAKING - ED course ED course: 61-year-old woman presents with abdominal pain and now ascites on bedside ultrasound and exam. She does not appear peripherally hypervolemic and does not have stigmata of liver disease so the suspicion for intra-abdominal malignancy is high. 61-year-old woman presents with abdominal bloating, CT and ultrasound imaging were done and consistent with a final diagnosis of large solid and cystic pelvic mass concerning for ovarian malignancy with ascites and omental thickening concerning for peritoneal carcinomatosis. The diagnosis was discussed at length with the patient and I emailed her primary care nurse practitioner in a protected email to get [facility] I considered doing a Paracentesis for symptomatic relief but on the view of the ultrasound and CT I was worried about hitting the ovarian mass as it is quite large, and there is not too much ascites fluid in the lower quadrants between the mass and the abdominal wall. Departure - Departure Disposition: 01 Home, Self Care Clinical Impression: Ovarian cancer Qualifiers: Laterality: unspecified laterality Qualified Code(s): C56.9 - Malignant neoplasm of unspecified ovary Condition: Good Record reviewed to determine appropriate education?: Yes Instructions: Cancer Ovarian Prescriptions: LORazepam [Ativan] 1 mg PO TID PRN #12 tablet PRN Reason: Anxiety Comments: As discussed today it seems most likely that you have metastatic ovarian cancer. I emailed your primary care nurse practitioner to get you referred to gynecology translational specialist. I sent a prescription for sleeping medicine that will also help with anxiety to the [facility] in [place]. Do not drink or drive if you take that medication. Return for new or worsening symptoms.
[2021-12-09 17:39] LABS: BILIRUBIN,URINE NEGATIVE (NEGATIVE); GLUCOSE, URINE (UA) NEGATIVE (NEGATIVE); KETONES,URINE (UA) NEGATIVE (NEGATIVE); LEUKOCYTE ESTERASE, URINE NEGATIVE (NEGATIVE); NITRITE,URINE POSITIVE (NEGATIVE); OCCULT BLOOD,URINE NEGATIVE (NEGATIVE); PH,URINE 5.5 PH (5.0-7.5); PROTEIN,URINE NEGATIVE (NEGATIVE); UROBILINOGEN,URINE 0.2 (NORMAL) E.U./dL (NORMAL)
[2021-12-09 17:40] LABS: CLARITY,URINE HAZY (CLEAR)
[2021-12-09 17:48] LABS: BACTERIA,URINE Many /HPF (None Seen); RBC,URINE 0-5 /HPF (0-5); SQUAMOUS EPITHELIAL CELL,UR MANY Squamous (<= Few)
--- NOTE | 2021-12-09 19:36 | CT Report ---
PROCEDURE: Abdomen/Pelvis W INDICATIONS: IV only, new ascites CONTRAST: IV CONTRAST: Optiray 320 ml: 100 PO CONTRAST: *NO PO CONTRAST TECHNIQUE: After the administration of IV contrast, 5 mm thick sections acquired from the diaphragms to the symp hysis. 5 mm thick coronal and sagittal reformats were acquired. For radiation dose reduction, the f ollowing was used: automated exposure control, adjustment of mA and/or kV according to patient size. COMPARISON: Lung cancer screening chest CT 05/01/2018. FINDINGS: Image quality: Excellent. ABDOMEN: Lung bases: Right lower lobe pulmonary nodule measuring 0.8 cm, (4/3), unchanged suggesting a benign etiology. Heart size is normal. Solid organs: Liver and spleen are normal in size and enhancement. No focal lesion. Gallbladder is u nremarkable. Biliary system is non dilated. Pancreas enhances normally. No adrenal nodules. Kidne ys demonstrate normal size and enhancement, without hydronephrosis. Peritoneum and bowel: No small bowel obstruction. Diverticulosis. Normal appendix. Large volume of as cites. No pneumoperitoneum. Nodes and vessels: There is omental thickening. There is shotty mesenteric lymph nodes. There are enl arged retroperitoneal lymph nodes. Aortic node measuring 1.7 cm, (3/36). Enlarged node in the right l ower quadrant measuring 1.4 cm, (3/53). No aortic aneurysm. Miscellaneous: Probable supraumbilical hernia containing ascites fluid. PELVIS: Genitourinary: Bladder wall thickness is normal. No stone. Right pelvic cystic lesion measuring 9.5 x 9.2 cm, (74). Solid and cystic and prominent at the left paramedian pelvis measuring 7.8 x 5.3 c m, (75). Miscellaneous: No inguinal hernias or adenopathy. Bones: No suspicious bony lesions. No vertebral body compression fractures. IMPRESSION: 1. Large solid and cystic pelvic mass. This is suspicious for ovarian malignancy. Recommend pelvic ul trasound and/or MRI for further evaluation. Recommend gynecological consultation. 2. Large volume of ascites. Omental thickening. This is highly concerning for peritoneal carcinomatos is. 3. Enlarged retroperitoneal adenopathy. 4. Right lower lobe pulmonary nodule measuring 0.8 cm is unchanged since 2018 suggesting a benign roderick ology. Reviewed by: Braxton Guzman MD on 12/09/2021 7:35 PM PDT Approved by: Braxton Guzman MD on 12/09/2021 7:35 PM PDT Station ID: [id number]
[2021-12-09] MEDS ORDERED: LORazepam 1 MG TABLET PO STA (19:59)
--- NOTE | 2021-12-09 20:09 | Ultrasound Report ---
PROCEDURE: Pelvic w/Doppler Complete INDICATIONS: ascites, ? ovarian mass on my sono TECHNIQUE: Real-time transabdominal scanning was performed of the pelvic organs, with image documentation. Dopp ler interrogation was performed of the ovaries bilaterally. COMPARISON: Correlation is made with the accompanying CT of the abdomen and pelvis, 12/09/2021. Corre lation is also made with prior CT, 02/06/2019 FINDINGS: Uterus: Uterus is normal in size at 7.6 x 4.1 x 5.1 cm. Endometrium measures 17 mm in combined thic kness. Ovaries: The right ovary measures 15.4 x 11.6 cm. Multiple right ovarian cysts are seen, the largest measuring 10.7 x 8.5 x 8 cm. The waveforms are poorly seen to the right ovary. The left ovary is not seen. Moderate ascites is seen. IMPRESSION: There is markedly enlarged, multicystic right ovary. The irregular solid elements that c an be seen on the accompanying CT examination are poorly evaluated on this study. Given the patient's age, strong concern is raised for ovarian cystic neoplasm. Ascites is again seen, which is concerning for peritoneal spread, particularly given the accompanying CT appearance The endometrial stripe is abnormally thickened in this postmenopausal patient. Differential diagnosis includes endometrial hyperplasia and endometrial carcinoma. Please consider correlation with endom etrial histology, as clinically appropriate. Gynecologic consultation is recommended. Note: Concordant preliminary findings given by the server software engineer upon the completion of the examination to Dr. Galeana. Reviewed by: Rudy Hernández MD on 12/09/2021 7:08 PM RICHIE Approved by: Rudy Hernández MD on 12/09/2021 7:08 PM RICHIE Station ID: [id number]
[2021-12-09 20:11] VITALS: BP 145/82
== END 2021-12-09 20:09 | disposition home or self-care (01) ==
LOC: ED 14:37
DX: C56.9 Malignant neoplasm of unspecified ovary (principal); R18.8 Other ascites; Z87.891 Personal history of nicotine dependence
CPT/HCPCS: 36415; 74177; 76856; 80053; 81001; 83690; 85025; 86304; 99283; 99284; J8499; Q9967; 81003; 87086; 93975

== ENCOUNTER 2021-12-24 13:30 | Outpatient (CLI) | payer MEDICARE, OTHER ==
--- NOTE | 2021-12-24 18:10 | CT Report ---
PROCEDURE: CHEST W INDICATIONS: LYMPHADENOPATHY CONTRAST: IV CONTRAST: Optiray 320 ml: 100 PO CONTRAST: *NO PO CONTRAST TECHNIQUE: After the administration of intravenous contrast, 1 mm axial images were acquired from the pulmonary apices through the posterior costophrenic angles. Axial 5 mm soft tissue kernel reconstructions were performed as well as 8 mm axial MIP and coronal and sagittal 5 mm reformations. For radiation dose reduction, the following was used: automated exposure control, adjustment of mA and/or kV according to patient size. COMPARISON: 04/05/2020 FINDINGS: Image quality: Excellent. Lungs and pleura: Emphysema. Stable right fissural nodule. Scattered areas of scarring and atelectasi s. Mediastinum: Normal heart size. No hiatal hernia. Increased mediastinal and hilar adenopathy, for exa mple right paratracheal node (axial image 15) measuring 1.9 cm in short axis. Bones and chest wall: Small thyroid nodules do not require dedicated follow-up. No acute or suspiciou s osseous abnormality. Enlarged left supraclavicular lymph nodes. Abdomen: Recent abdominal CT separately dictated. There is peritoneal carcinomatosis and ascites. The re is also retroperitoneal adenopathy. IMPRESSION: Mediastinal and Virchow lymphadenopathy suspicious for disseminated malignancy. Stable right pulmonar y fissural nodule. Other micronodules can be followed on subsequent imaging. Partially visualized per itoneal carcinomatosis and ascites. Reviewed by: Wang Noel MD on 12/24/2021 6:08 PM PDT Approved by: Wang Noel MD on 12/24/2021 6:08 PM PDT Station ID: [id number]
== END 2021-12-24 13:31 | disposition home or self-care (01) ==
LOC: DI 13:30
PROVIDERS: ATTEND Obstetrics & Gynecology
DX: C80.1 Malignant (primary) neoplasm, unspecified (principal); C78.6 Secondary malignant neoplasm of retroperitoneum and peritoneum; R59.1 Generalized enlarged lymph nodes; R91.1 Solitary pulmonary nodule; R18.8 Other ascites; R97.1 Elevated cancer antigen 125 [CA 125]
CPT/HCPCS: 71260; Q9967

== ENCOUNTER 2022-01-20 07:28 | Day surgery (SDC) | payer MEDICARE, OTHER ==
[2022-01-20] MEDS ORDERED: LACTATED RINGERS 1,000 ML IV ONE ×2 (07:51→11:19)
[2022-01-20] MEDS ORDERED: LIDOCAINE MPF 2%-EPI 1:200000 20 ML VIAL ONE (08:09)
[2022-01-20] MEDS ORDERED: BUPIVACAINE 0.5% PF 30 ML VIAL ONE (08:09)
--- NOTE | 2022-01-20 08:34 | ANESTHESIA ---
Pre-Anesthesia VS, & Labs - Diagnosis pelvic mass - Procedure port placement Vital Signs: Temp Pulse Resp BP Pulse Ox O2 Flow Rate 36 C L 80 16 179/116 H 100 01/20/22 07:46 01/20/22 07:46 01/20/22 07:46 01/20/22 07:46 01/20/22 07:46 Height: 5 ft 7 in Weight (kg): 91 kg Body Mass Index: 31.4 BMI Classification: Obese - NPO >8 hours - Is Patient ?: No Home Medications and Allergies Atorvastatin [Lipitor] 80 mg PO DAILY 12/24/21 Omeprazole Magnesium 10 mg PO DAILY 12/24/21 Lisinopril [Zestril] 10 mg PO DAILY 01/17/22 Allergies/Adverse Reactions: Allergies Allergy/AdvReac Type Severity Reaction Status Date / Time Penicillins Allergy Hives Verified 12/20/21 09:51 Anes History & Medical History - Anesthetic History Anesthesia Complications: reports: No previous complications - Medical History Cardiovascular: reports: High cholesterol, Hypertension Pulmonary: reports: Emphysema Gastrointestinal: reports: Hiatal hernia Urinary: reports: Nocturia Musculoskeletal: reports: Chronic back pain Endocrine/Autoimmune: reports: None Skin: reports: None Smoking Status: Unknown if ever smoked History of Cancer?: Yes (Stage 4 ovarian cancer) - Surgical History General: reports: Colonoscopy, EGD Exam General: Alert, Oriented x3, Cooperative Dental: WNL Mouth Opening: Greater than 4 Fingerbreadths Mallampati classification: III Thyromental Distance: greater than 6 cm Respiratory: Lungs clear Cardiovascular: Regular rate, Normal S1, Normal S2 Plan Anesthesia Type: General (backup), MAC, Total IV Consent for Procedure(s) Verified and Reviewed: Yes Code Status: Attempt Resuscitation ASA classification: 4-Incapacitating disease Is this case an emergency?: Yes
[2022-01-20] MEDS ORDERED: fentaNYL 100 MCG/2 ML VIAL ONE (09:21)
[2022-01-20] MEDS ORDERED: MIDAZOLAM 2 MG/2 ML VIAL ONE (09:21)
[2022-01-20] MEDS ORDERED: KETAMINE 500 MG/10 ML VIAL ONE (09:22)
[2022-01-20] MEDS ORDERED: PROPOFOL 200 MG/20 ML VIAL IVP ONE ×3 (09:22→11:11)
[2022-01-20] MEDS ORDERED: LIDOCAINE MPF 2%-EPI 1:200000 20 ML VIAL SUBQ ONE ×2 (10:37)
[2022-01-20] MEDS ORDERED: BUPIVACAINE 0.5% PF 30 ML VIAL SUBQ ONE ×2 (10:38)
[2022-01-20] MEDS ORDERED: ceFAZolin 1 GM VIAL ONE (10:58)
--- NOTE | 2022-01-20 11:20 | OPERATIVE REPORT ---
Operative Report - General Procedure Date: 01/20/22 Planned Procedure: port a catheter placement Pre-Op Diagnosis: ovarian cancer Procedure Performed: R IJ PAC placement with fluoroscopy and ultrasound guidance Post Op Diagnosis: ovarian cancer - Procedure Note Primary Surgeon: Dr. Kiera Serrano Anesthesia Technique: Local, MAC Estimated Blood Loss (mL): 5 Indications: This patient has stage IV ovarian cancer. Her oncology team has requested her portacatheter be placed. I discussed the risks, benefits, and alternatives of the procedure with the patient preoperatively. Risks include but are not limited to bleeding, infection, damage to surrounding structures, pneumothorax, infection of the port requiring removal, dysfunction of the port, and the need for further surgeries or procedures. The patient voiced understanding, her questions were answered, and she wished to proceed. PAR-Q. A consent was signed by the patient prior to the procedure. Findings: 1. Patent right internal jugular vein. 2. Portacatheter flushes easily and draws well with downward traction. Loaded with 1000 units/mL heparin, 2 mL. Complications: none - Other Other Information/Narrative: The patient was taken to the operative suite and placed in the supine position preoperative ERAS medications given. Preoperative antibiotics given. MAC anesthesia was induced to the appropriate level of consciousness. An ultrasound was used to verify the right internal jugular vein was widely patent. The patient was then prepped and draped in the usual, sterile fashion. Next, a sterile ultrasound probe was used to visualize the right internal jugular vein local anesthetic was injected into the skin and subcutaneous tissues overlying this vessel and an 11 blade scalpel was used to make a small skin abisai. Next, under direct ultrasound guidance, a Cook needle was used to gain access to the right internal jugular vein. This was successful on the first attempt. There was excellent return of dark red nonpulsatile blood. A guidewire was passed through the Cook needle without resistance. Fluoroscopy was used to verify the position of the wire. Ultrasound was also used to verify the position of the wire. Next, attention was turned to the chest. The location was chosen on the right anterior chest wall for the portacatheter to sit. The skin and subcutaneous tissues in this area were anesthetized with local as was the path which the catheter would follow up to the neck incision. A 15 blade scalpel was used to make a 2 cm incision in the which was carried down through the skin and subcutaneous tissues to the level of the clavipectoral fascia. A pocket was made with blunt dissection to accommodate the port. Port easily fit within the pocket. 2 interrupted sutures of 3-0 PDS were placed through the port to tack it to the clavipectoral fascia. These were tied into place and then the port was tunneled from the inferior chest wall incision to the superior neck incision. Next, the catheter was cut to the appropriate length, 25cm, under direct fluoroscopic guidance. A dilator and sheath were passed over the guidewire under direct fluoroscopic guidance and the dilator and guidewire were removed leaving only the breakaway sheath in place. The catheter was passed through the sheath and the sheath was broken away. The catheter was the only thing that remained within the vessel. Fluoroscopy confirmed that the catheter tip was in good position and that there were no kinks at the neck. The catheter flushed easily and anuja well with downward traction. Next, 3-0 Vicryl was used in an interrupted fashion to reapproximate the deep dermal tissues at the chest incision. Then, 4-0 Monocryl was used in an interrupted subcuticular fashion to reapproximate the skin at the neck incision and in a running subcuticular fashion to reapproximate the skin at the chest incision. A sterile dressing of skin glue was placed. The port was flushed with 2 mL 1000 units/mL heparinized saline. The patient tolerated the procedure well and there were no complications. A postoperative chest x-ray is pending at this time.
--- NOTE | 2022-01-20 11:36 | XRAY Report ---
PROCEDURE: Post Port Placement 1V CXR INDICATIONS: line placement TECHNIQUE: One view of the chest was acquired. COMPARISON: CT of chest dated 12/24/2021 FINDINGS: Surgical changes and devices: Right chest wall Port-A-Cath tip is in SVC. Lungs and pleura: No pleural effusions or pneumothorax. Lungs are clear. Mediastinum: Mediastinal contours appear normal. Heart size is normal. Bones and chest wall: No suspicious bony lesions. Overlying soft tissues appear unremarkable. IMPRESSION: Right chest wall Port-A-Cath tip is in SVC. No focal infiltrate, pleural effusion or pneumothorax. Reviewed by: Gus Wahl MD on 01/20/2022 11:35 AM PDT Approved by: Gus Wahl MD on 01/20/2022 11:35 AM PDT Station ID: [id number]
[2022-01-20 12:24] VITALS: BP 153/80
--- NOTE | 2022-01-20 12:33 | ANESTHESIA POST OP EVALUATION ---
Anesthesia Post Eval - Post Anesthesia Eval Vitals: Last Vital Signs Temp 36.1 C L 01/20/22 11:55 Pulse 72 01/20/22 11:55 Resp 16 01/20/22 11:55 BP 153/80 H 01/20/22 11:55 Pulse Ox 98 01/20/22 11:55 O2 Flow Rate CV Function Including HR & BP: Stable Pain Control: Satisfactory Nausea & Vomiting: Negative Mental Status: Baseline Respiratory Status: Airway Patent Hydration Status: Satisfactory Anesthesia Complications: None
--- NOTE | 2022-01-20 12:56 | XRAY Report ---
PROCEDURE: OR Port-A-Cath INDICATIONS: PORTACATH PLACEMENT TECHNIQUE: 2 low-resolution fluoroscopic spot films were obtained intraoperatively COMPARISON: None. FINDINGS: First image shows Port-A-Cath port and proximal catheter in good position. The second image shows the tip of the Port-A-Cath at the cavoatrial junction. A lap sponge projects over the mid chest IMPRESSION: Fluoroscopic guidance Reviewed by: Pee Burgos MD on 01/20/2022 11:54 AM RICHIE Approved by: Pee Burgos MD on 01/20/2022 11:54 AM RICHIE Station ID: [id number]
[2022-01-20] MEDS ORDERED: DEXAMETHASONE 4 MG/ML VIAL ONE (13:50)
[2022-01-20] MEDS ORDERED: ONDANSETRON 4 MG/2 ML VIAL ONE (13:50)
[2022-01-20] MEDS ORDERED: ePHEDrine 50 MG/ML VIAL IVP ONE (14:16)
[2022-01-20] MEDS ORDERED: KETOROLAC 30 MG/ML VIAL ONE (15:55)
== END 2022-01-20 07:29 | disposition home or self-care (01) ==
LOC: SDS 07:28
PROVIDERS: ATTEND Surgery
DX: C56.9 Malignant neoplasm of unspecified ovary (principal); J43.9 Emphysema, unspecified; I10 Essential (primary) hypertension; E66.9 Obesity, unspecified; Z68.31 Body mass index [BMI] 31.0-31.9, adult
CPT/HCPCS: 36561; C1788; J7120

== ENCOUNTER 2022-02-04 13:24 | Outpatient (CLI) | payer MEDICARE, OTHER ==
--- NOTE | 2022-02-05 09:08 | Mammography Report ---
BILATERAL DIGITAL SCREENING MAMMOGRAM 3D/2D WITH EXAGGERATED CC: 02/04/2022 CLINICAL: Routine screening. Family history of breast cancer. Comparison is made to exams dated: 05/26/2019 mammogram, 04/19/2019 mammogram - [facility], and 01/08/2016 mammogram - outside facility. There are scattered areas of fibroglandular density in both breasts (category b / 25%-50% glandular t issue). No significant masses, calcifications, or other findings are seen in either breast. There has been no significant interval change. IMPRESSION: NEGATIVE There is no mammographic evidence of malignancy. A 1 year screening mammogram is recommended. Based on the Tyrer Cuzick model (a risk assessment model) the patients lifetime risk is 7.9% and her 10 year risk is 3.4%. According to the ACR, ACS, and NCCN guidelines, an annual breast MRI exam tio g with mammogram is recommended if the patients lifetime risk is 20% or greater. This exam was interpreted at Station ID: [id number]. NOTE: For mammograms, a report in lay terms will be sent to the patient. Approximately 15% of breast malignancies will not be visualized mammographically. In the management of a palpable breast mass, a negative mammogram must not discourage biopsy of a clinically suspicious lesion. Electronically Signed By: Braxton hernandez/james:02/04/2022 17:27:11 ACR BI-RADS Category 1: Negative 3341F PARENCHYMAL PATTERN: (A) - The breast(s) demonstrate(s) scattered fibroglandular densities. BI-RADS CATEGORY: (1) - 1 RECOMMENDATION: (ANNUAL) - Recommend routine annual screening mammography. [id number] 1 year screening LATERALITY: (B)
== END 2022-02-04 13:25 | disposition home or self-care (01) ==
LOC: DI.S 13:24
DX: Z12.31 Encounter for screening mammogram for malignant neoplasm of breast (principal); Z80.3 Family history of malignant neoplasm of breast

== ENCOUNTER 2022-03-19 07:02 | Outpatient (CLI) | payer MEDICARE, OTHER ==
[2022-03-19 15:39] LABS: CHOL/HDL RATIO 9.8 (<4.4); CHOLESTEROL 353 mg/dL; HDL CHOLESTEROL 36 mg/dL; TRIGLYCERIDES 546 mg/dL
[2022-03-19 15:53] LABS: THYROID STIMULATING HORMONE 1.26 uIU/mL (0.34-5.60)
[2022-03-19 16:28] LABS: LDL CHOLESTEROL,DIRECT 108 mg/dL
== END 2022-03-19 07:03 | disposition home or self-care (01) ==
LOC: LAB.S 07:02
PROVIDERS: ATTEND Registered Nurse
DX: I10 Essential (primary) hypertension (principal); E78.5 Hyperlipidemia, unspecified; E04.1 Nontoxic single thyroid nodule
CPT/HCPCS: 36415; 80061; 83721; 84443

== ENCOUNTER 2022-04-04 07:12 | Outpatient (CLI) | payer MEDICARE, OTHER ==
[2022-04-04 15:27] LABS: BASOPHILS % (AUTO) 0.8 %; EOSINOPHILS # (AUTO) 0.1 10^3/uL (0.0-0.7); EOSINOPHILS % (AUTO) 1.5 %; HCT - HEMATOCRIT 34.3 % (37.0-47.0); HGB - HEMOGLOBIN 10.6 g/dL (12.0-16.0); LYMPHOCYTES # (AUTO) 1.7 10^3/uL (1.5-3.5); LYMPHOCYTES % (AUTO) 31.7 %; MEAN CORPUSCULAR HEMOGLOBIN 31.2 pg (27.0-31.0); MEAN CORPUSCULAR HGB CONC 30.9 g/dL (32.0-36.0); MEAN CORPUSCULAR VOLUME 100.9 fL (81.0-99.0); MEAN PLATELET VOLUME 9.2 fL (7.9-10.8); MONOCYTES # (AUTO) 0.4 10^3/uL (0.0-1.0); MONOCYTES % (AUTO) 8.3 %; NEUTROPHILS # (AUTO) 3.1 10^3/uL (1.5-6.6); NEUTROPHILS % (AUTO) 57.3 %; PLT - PLATELET COUNT 219 10^3/uL (130-450); RED CELL DISTRIBUTION WIDTH 19.1 % (12.0-15.0); WHITE BLOOD COUNT 5.3 x10^3/uL (4.8-10.8)
[2022-04-04 16:00] LABS: CHOL/HDL RATIO 8.6 (<4.4); CHOLESTEROL 293 mg/dL; HDL CHOLESTEROL 34 mg/dL; TRIGLYCERIDES 419 mg/dL
[2022-04-04 16:01] LABS: ALBUMIN 3.8 g/dL (3.2-5.5); BILIRUBIN,TOTAL 0.5 mg/dL (0.2-1.0); CALCIUM 9.7 mg/dL (8.5-10.3); CREATININE 0.8 mg/dL (0.4-1.0); POTASSIUM 4.1 mmol/L (3.5-5.0); TOTAL PROTEIN 7.6 g/dL (6.7-8.2)
[2022-04-04 16:10] LABS: THYROID STIMULATING HORMONE 1.1 uIU/mL (0.34-5.60)
[2022-04-04 18:08] LABS: LDL CHOLESTEROL,DIRECT 100 mg/dL; LDLD/HDL RATIO 2.9 (<4.4)
== END 2022-04-04 07:13 | disposition home or self-care (01) ==
LOC: LAB.S 07:12
PROVIDERS: ATTEND Registered Nurse
DX: Z01.812 Encounter for preprocedural laboratory examination (principal); I10 Essential (primary) hypertension; E78.5 Hyperlipidemia, unspecified; E04.1 Nontoxic single thyroid nodule; C56.9 Malignant neoplasm of unspecified ovary
CPT/HCPCS: 36415; 80053; 80061; 83721; 84443; 85025; 86850; 86870; 86880; 86900; 86901

== ENCOUNTER 2023-07-07 08:00 | Outpatient (CLI) | payer MEDICARE, OTHER | END 2023-07-07 23:59 | disposition home or self-care (01) | LOC: PC 08:00 | PROVIDERS: ATTEND Nurse Practitioner Adult Health | DX: Z51.5 Encounter for palliative care (principal); I10 Essential (primary) hypertension; G62.0 Drug-induced polyneuropathy; T45.1X5A Adverse effect of antineoplastic and immunosuppressive drugs, initial encounter; C56.9 Malignant neoplasm of unspecified ovary; F41.8 Other specified anxiety disorders; Z79.899 Other long term (current) drug therapy | CPT/HCPCS: 99215 ==

== ENCOUNTER 2023-07-29 08:00 | Outpatient (CLI) | payer MEDICARE, OTHER | END 2023-07-29 23:59 | disposition home or self-care (01) | LOC: PC 08:00 | PROVIDERS: ATTEND Nurse Practitioner Adult Health | DX: Z51.5 Encounter for palliative care (principal); F41.8 Other specified anxiety disorders; I10 Essential (primary) hypertension; C56.9 Malignant neoplasm of unspecified ovary; Z79.899 Other long term (current) drug therapy; Z71.89 Other specified counseling | CPT/HCPCS: 99215 ==

== ENCOUNTER 2023-08-25 11:30 | Outpatient (CLI) | payer MEDICARE, OTHER | END 2023-08-25 23:59 | disposition home or self-care (01) | LOC: PC 11:30 | PROVIDERS: ATTEND Nurse Practitioner Adult Health | DX: Z51.5 Encounter for palliative care (principal); C56.9 Malignant neoplasm of unspecified ovary; Z79.620 Long term (current) use of immunosuppressive biologic; R97.1 Elevated cancer antigen 125 [CA 125]; Z79.630 Long term (current) use of alkylating agent; Z79.633 Long term (current) use of mitotic inhibitor; Z90.710 Acquired absence of both cervix and uterus; Z90.722 Acquired absence of ovaries, bilateral; Z63.32 Other absence of family member; M25.50 Pain in unspecified joint; Z79.891 Long term (current) use of opiate analgesic; I10 Essential (primary) hypertension; F41.8 Other specified anxiety disorders; G62.0 Drug-induced polyneuropathy; Z79.899 Other long term (current) drug therapy; R53.83 Other fatigue; D61.810 Antineoplastic chemotherapy induced pancytopenia; T45.1X5A Adverse effect of antineoplastic and immunosuppressive drugs, initial encounter | CPT/HCPCS: 99215 ==

== ENCOUNTER 2023-09-08 08:00 | Outpatient (CLI) | payer MEDICARE, OTHER | END 2023-09-08 23:59 | disposition home or self-care (01) | LOC: PC 08:00 | PROVIDERS: ATTEND Nurse Practitioner Adult Health | DX: Z51.5 Encounter for palliative care (principal); M25.50 Pain in unspecified joint; I10 Essential (primary) hypertension; F41.8 Other specified anxiety disorders; G62.0 Drug-induced polyneuropathy; T45.1X5A Adverse effect of antineoplastic and immunosuppressive drugs, initial encounter; C56.9 Malignant neoplasm of unspecified ovary | CPT/HCPCS: 99215 ==

== ENCOUNTER 2023-10-20 08:30 | Outpatient (CLI) | payer MEDICARE, OTHER | END 2023-10-20 23:59 | disposition home or self-care (01) | LOC: PC 08:30 | PROVIDERS: ATTEND Nurse Practitioner Adult Health | DX: Z51.5 Encounter for palliative care (principal); R53.83 Other fatigue; G62.0 Drug-induced polyneuropathy; D61.810 Antineoplastic chemotherapy induced pancytopenia; T45.1X5A Adverse effect of antineoplastic and immunosuppressive drugs, initial encounter; H61.23 Impacted cerumen, bilateral; K02.62 Dental caries on smooth surface penetrating into dentin; F41.8 Other specified anxiety disorders; C56.9 Malignant neoplasm of unspecified ovary; I10 Essential (primary) hypertension; Z79.899 Other long term (current) drug therapy; Z63.8 Other specified problems related to primary support group; Z60.8 Other problems related to social environment | CPT/HCPCS: 99215 ==

== ENCOUNTER 2023-11-17 08:00 | Outpatient (CLI) | payer MEDICARE, OTHER | END 2023-11-17 23:59 | disposition home or self-care (01) | LOC: PC 08:00 | PROVIDERS: ATTEND Nurse Practitioner Adult Health | DX: Z51.5 Encounter for palliative care (principal); C56.9 Malignant neoplasm of unspecified ovary; E87.5 Hyperkalemia; E16.2 Hypoglycemia, unspecified; R53.83 Other fatigue; T45.1X5A Adverse effect of antineoplastic and immunosuppressive drugs, initial encounter | CPT/HCPCS: 99215 ==